=== PATIENT | female | born 1945 | race Caucasian/White ===

== ENCOUNTER 2024-05-08 15:13 | Inpatient (IN) | payer BC, MEDICARE ==
[2024-05-08] MEDS ORDERED: Sodium Chloride 0.9% 10 ML Syringe FLUSH PRN (16:13)
[2024-05-08] MEDS ORDERED: Naloxone 0.4 MG/ML SDV IVPUSH PRN ×3 (16:14→21:55)
[2024-05-08 16:28] LABS: BASOPHILS PERCENT AUTO 0.2 % (0.1-1.3); EOSINOPHILS ABSOLUTE AUTO 0.06 K/uL (0.00-0.40); EOSINOPHILS PERCENT AUTO 0.6 % (0.0-5.4); HEMATOCRIT 38.2 % (34.3-46.0); HEMOGLOBIN 13.4 g/dL (11.2-15.5); IMMATURE GRAN ABSOLUTE AUTO 0.04 K/uL (0.00-0.23); IMMATURE GRAN PERCENT AUTO 0.4 % (0.0-0.7); LYMPHOCYTES PERCENT AUTO 22.8 % (11.4-47.7); MEAN CORPUSCULAR HEMOGLOBIN 31.6 pg (31.6-35.5); MEAN CORPUSCULAR HGB CONC 35.1 g/dL (31.6-35.5); MEAN CORPUSCULAR VOLUME 90.1 fL (81.4-99.0); MONOCYTES ABSOLUTE AUTO 0.92 K/uL (0.20-0.90); MONOCYTES PERCENT AUTO 9.1 % (3.3-12.6); NEUTROPHILS ABSOLUTE AUTO 6.75 K/uL (1.0-7.6); NEUTROPHILS PERCENT AUTO 66.9 % (40.0-78.1); PLATELET COUNT,PLT 317 K/uL (130-375); RED BLOOD CELL COUNT 4.24 M/uL (3.77-5.24); WHITE BLOOD CELL COUNT,WBC 10.1 K/uL (3.2-11.0)
[2024-05-08 16:29] LABS: BASOPHILS ABSOLUTE AUTO 0.02 K/uL (0.00-0.10)
[2024-05-08] MEDS: Sodium Chloride 0.9% 1,000 ML IV SCH ×2 (16:31→22:45)
[2024-05-08] MEDS: Famotidine 20 MG/2 ML SDV IVPUSH ONE (16:32)
[2024-05-08] MEDS: Ondansetron 4 MG/2 ML SDV IVPUSH ONE ×2 (16:32→20:10)
[2024-05-08] MEDS: fentaNYL 50 MCG/ML SDV IVPUSH ONE ×2 (16:32→17:25)
[2024-05-08 16:49] LABS: A/G RATIO 1.1 (1.2-2.2); ALANINE AMINOTRANSFERASE,ALT 10 U/L (12-78); ALBUMIN 3.9 g/dL (3.4-5.0); ALKALINE PHOSPHATASE 69 U/L (46-116); ASPARTATE AMNIOTRANSFERASE,AST 21 U/L (15-37); BILIRUBIN TOTAL 0.6 mg/dL (0.2-1.0); BLOOD UREA NITROGEN,BUN 24 mg/dL (7-18); CALCIUM 9.8 mg/dL (8.5-10.1); CARBON DIOXIDE,CO2 26 mmol/L (21-32); CHLORIDE,CL 101 mmol/L (100-108); CREATININE 0.8 mg/dL (0.6-1.0); EST CRCL DRUG DOSING (CG) 51.66 mL/min; ESTIMATED GFR 76 mL/min (>60); GLUCOSE RANDOM 111 mg/dL (74-106); POTASSIUM,K 3.9 mmol/L (3.6-5.2); PROTEIN TOTAL,TP 7.6 g/dL (6.4-8.2); SODIUM,NA 135 mmol/L (140-148)
[2024-05-08 16:51] LABS: ANION GAP 11.9 mmol/L (5.0-14.0)
[2024-05-08 17:01] LABS: APPEARANCE,URINE SLIGHTLY CLOUDY (CLEAR); BILIRUBIN,URINE NEGATIVE (NEGATIVE); COLOR,URINE YELLOW (YELLOW); GLUCOSE,URINE NEGATIVE (NEGATIVE); KETONES,URINE TRACE mg/dL (NEGATIVE); LEUKOCYTE ESTERASE,URINE SMALL (NEGATIVE); NITRITE,URINE NEGATIVE (NEGATIVE); OCCULT BLOOD,URINE NEGATIVE (NEGATIVE); PH,URINE 5.5 (5.0-8.0); PROTEIN,URINE NEGATIVE (NEGATIVE); UROBILINOGEN,URINE 0.2 EU/dL (0.2-1.0)
[2024-05-08 17:12] LABS: AMORPHOUS SEDIMENT,URINE NOT SEEN; BACTERIA,URINE MODERATE; EPITHELIAL CELLS,URINE MODERATE; MUCUS,URINE FEW; RBC,URINE 0-5 (0-5)
[2024-05-08] MEDS: HYDROmorphone 0.5 MG/0.5 ML Syringe IVPUSH ONE ×2 (17:54→19:04)
[2024-05-08] MEDS: Iopamidol 612 MG/ML 100 ML Bottle IV ONE (18:38)
[2024-05-08] MEDS: Sodium Chloride 0.9% 100 ML IV ONE (18:38)
[2024-05-08] MEDS: Sodium Chloride 0.9% 10 ML Syringe FLUSH ONE (18:38)
[2024-05-08] MEDS: Pantoprazole 40 MG Vial IVPUSH ONE (20:11)
[2024-05-08] MEDS: LORazepam 2 MG/ML SDV IVPUSH ONE (21:08)
[2024-05-08] MEDS: Morphine 2 MG/ML SYRINGE IVPUSH ONE ×2 (21:09→23:30)
[2024-05-08] MEDS ORDERED: Morphine 2 MG/ML SYRINGE IVPUSH PRN (21:55)
[2024-05-08] MEDS ORDERED: Magnesium Hydroxide 400 MG/5 ML Susp 30 ML Cup PO PRN (21:55)
[2024-05-08] MEDS ORDERED: LORazepam 2 MG/ML SDV IVPUSH PRN (21:55)
[2024-05-08] MEDS ORDERED: Ondansetron 4 MG/2 ML SDV IV PRN (21:55)
[2024-05-08] MEDS ORDERED: Acetaminophen 325 MG Tab PO PRN (21:55)
[2024-05-08] MEDS: Enoxaparin 40 MG/0.4 ML Syringe SUBCUT SCH (22:45)
[2024-05-09 05:01] LABS: HEMATOCRIT 37.5 % (34.3-46.0); HEMOGLOBIN 12.7 g/dL (11.2-15.5); MEAN CORPUSCULAR HEMOGLOBIN 30.5 pg (31.6-35.5); MEAN CORPUSCULAR HGB CONC 33.9 g/dL (31.6-35.5); MEAN CORPUSCULAR VOLUME 89.9 fL (81.4-99.0); RED BLOOD CELL COUNT 4.17 M/uL (3.77-5.24); WHITE BLOOD CELL COUNT,WBC 8.6 K/uL (3.2-11.0)
[2024-05-09 05:24] LABS: ANION GAP 9.3 mmol/L (5.0-14.0); CALCIUM 8.6 mg/dL (8.5-10.1); CREATININE 0.9 mg/dL (0.6-1.0); EST CRCL DRUG DOSING (CG) 45.92 mL/min; POTASSIUM,K 4.3 mmol/L (3.6-5.2)
[2024-05-09] MEDS ORDERED: CARB PO SCH (06:00)
[2024-05-09] MEDS ORDERED: LEVO PO SCH (06:00)
[2024-05-09] MEDS: Carbidopa/Levodopa 25-100 MG Tab PO SCH (07:30)
[2024-05-09] MEDS: Pantoprazole 40 MG Tab.CR PO SCH (07:33)
[2024-05-09] MEDS ORDERED: Carbidopa/Levodopa 50-200 MG Tab.ER PO PRN (07:39)
[2024-05-09] MEDS ORDERED: [UNRECOGNIZED DRUG - MIXTURE] PO SCH (09:00)
[2024-05-09 13:58] LABS: APPEARANCE,URINE CLEAR (CLEAR); BILIRUBIN,URINE NEGATIVE (NEGATIVE); COLOR,URINE YELLOW (YELLOW); GLUCOSE,URINE NEGATIVE (NEGATIVE); KETONES,URINE NEGATIVE (NEGATIVE); LEUKOCYTE ESTERASE,URINE NEGATIVE (NEGATIVE); NITRITE,URINE NEGATIVE (NEGATIVE); OCCULT BLOOD,URINE NEGATIVE (NEGATIVE); PROTEIN,URINE NEGATIVE (NEGATIVE)
[2024-05-09] MEDS: traMADol 50 MG Tab PO PRN (18:20)
[2024-05-09] MEDS: Ondansetron 4 MG Tab.DIS PO PRN (18:20)
[2024-05-09] MEDS ORDERED: Calcium Carbonate 500 MG Tab.Chew PO PRN (19:41)
[2024-05-09] MEDS: RASAGILINE MESYLATE 1 MG PO SCH (21:41)
[2024-05-09] MEDS: Carbidopa/Levodopa 50-200 MG Tab.ER PO SCH (21:42)
[2024-05-09] MEDS: Melatonin 3 MG Tab PO PRN (22:49)
[2024-05-10] MEDS: Pantoprazole 40 MG Tab.CR PO SCH (08:01)
[2024-05-11] MEDS ORDERED: Alendronate 70 MG Tab PO SCH (07:00)
== END 2024-05-10 09:20 | disposition home or self-care (01) | DRG 700 ==
LOC: JP.ED 15:13 → JP.MS 21:26
PROVIDERS: ADMIT Registered Nurse; ATTEND Internal Medicine
DX: N28.0 Ischemia and infarction of kidney (principal); R10.32 Left lower quadrant pain; R11.2 Nausea with vomiting, unspecified; E78.00 Pure hypercholesterolemia, unspecified; G20.A1 Parkinson's disease without dyskinesia, without mention of fluctuations; Z96.659 Presence of unspecified artificial knee joint; Z88.8 Allergy status to other drugs, medicaments and biological substances; K21.9 Gastro-esophageal reflux disease without esophagitis; Z88.0 Allergy status to penicillin; Z88.1 Allergy status to other antibiotic agents; Z88.5 Allergy status to narcotic agent; Z79.899 Other long term (current) drug therapy; Z87.19 Personal history of other diseases of the digestive system; Z87.81 Personal history of (healed) traumatic fracture; Z98.49 Cataract extraction status, unspecified eye; Z90.49 Acquired absence of other specified parts of digestive tract; Z90.710 Acquired absence of both cervix and uterus; Z90.79 Acquired absence of other genital organ(s); Z90.722 Acquired absence of ovaries, bilateral
CPT/HCPCS: 36415; 74177; 80053; 81001; 83615; 85025; 93005; 96361; 96374; 96375; 96376; 99285; J1170 ×2; J2060; J2270; J2405 ×2; J2470; J3010 ×2; J3490 ×3; J7030; Q9967; 80048; 85027; 99223; 99232; 99238; A9270-GY; J1650; Q0162